=== PATIENT | male | born 1975 | race American Indian/Alaskan Native ===

== ENCOUNTER 2022-02-01 19:57 | Observation (INO) ==
[2022-02-01 20:45] LABS: Basophils # 0.1 K/mcL (0.0-0.2); Eosinophils # 0.8 K/mcL (0.0-0.6); Eosinophils % 5.6 %; Hematocrit 34.2 % (37.5-50.1); Hemoglobin 11.3 g/dL (12.9-16.9); Immature Granulocytes % 0.5 % (0-4); Lymphocytes # 2.1 K/mcL (0.6-4.6); Lymphocytes % 15.3 %; Mean Corpuscular Hemoglobin 31.8 pg (28.0-33.3); Mean Corpuscular Volume 96.3 fL (83.0-100.0); Mean Platelet Volume 8.8 fL (9.4-12.4); Monocytes # 1.1 K/mcL (0.0-1.3); Monocytes % 7.9 %; Neutrophils # 9.8 K/mcL (1.6-8.9); Platelet Count 288 K/mcL (140-400); Red Blood Count 3.55 M/mcL (4.19-5.50); Segmented Neutrophils % 69.7 %
[2022-02-01 21:01] LABS: INR 1.1; Prothrombin Time 11.9 Seconds (9.4-12.1)
[2022-02-01 21:03] LABS: Activated Partial Thrombo Time 29.1 Seconds (26.0-36.0)
[2022-02-01] MEDS ORDERED: Albuterol 2.5 MG/3 ML NEBULIZER IH ONE (22:18)
[2022-02-01] MEDS ORDERED: Insulin Human Regular 10 UNIT in 0.9 % Sodium Chloride 10 ML IV ONE (22:18)
[2022-02-01] MEDS ORDERED: Sodium Bicarbonate 50 MEQ/50 ML VIAL IVP ONE (22:18)
[2022-02-01] MEDS ORDERED: SODIUM ZIRCONIUM CYCLOSILICATE 5 GM POWD.PACK PO ONE (22:21)
[2022-02-01 22:28] LABS: Calcium 9.5 mg/dL (8.6-10.3)
[2022-02-01 22:30] LABS: Potassium 6.9 mEq/L (3.5-5.1)
[2022-02-01] MEDS ORDERED: *HR* Dextrose 50 % in Water (Syg) 50 ML SYRINGE ONE (23:15)
[2022-02-01] MEDS: Calcium Gluconate 1gm/50mL 1 GM/50 ML BAG IVPB SCH ×2 (23:17→23:54)
[2022-02-01] MEDS: *HR* Dextrose 50 % in Water (Vial) 50 ML VIAL IVP ONE (23:23)
[2022-02-01] MEDS ORDERED: Naloxone 0.4 MG/ML INJ IVP PRN (23:37)
[2022-02-01] MEDS ORDERED: Ondansetron ODT 4 MG TAB.RAPDIS SL PRN (23:37)
[2022-02-01] MEDS ORDERED: Melatonin 3 MG TABLET PO PRN (23:37)
[2022-02-02 05:45] LABS: Basophils # 0.1 K/mcL (0.0-0.2); Basophils % 0.9 %; Eosinophils # 0.7 K/mcL (0.0-0.6); Eosinophils % 5.3 %; Hematocrit 32.2 % (37.5-50.1); Hemoglobin 10.6 g/dL (12.9-16.9); Immature Granulocytes % 0.4 % (0-4); Lymphocytes # 2.4 K/mcL (0.6-4.6); Lymphocytes % 17.9 %; Mean Corpuscular HGB Conc 32.9 g/dL (31.6-35.5); Mean Corpuscular Hemoglobin 31.5 pg (28.0-33.3); Mean Corpuscular Volume 95.5 fL (83.0-100.0); Mean Platelet Volume 8.8 fL (9.4-12.4); Monocytes % 7.7 %; Neutrophils # 9.2 K/mcL (1.6-8.9); Platelet Count 280 K/mcL (140-400); Red Blood Count 3.37 M/mcL (4.19-5.50); Segmented Neutrophils % 67.8 %; White Blood Count 13.6 K/mcL (4.3-11.1)
[2022-02-02 06:04] LABS: Albumin 3.4 g/dL (3.5-5.7); Albumin/Globulin Ratio 1.4 (1.1-2.2); Bilirubin,Total 0.3 mg/dL (0.3-1.0); Calcium 9.7 mg/dL (8.6-10.3); Globulin 2.5 g/dL (2.4-3.5); Magnesium 1.7 mg/dL (1.6-2.6); Phosphorous 9.3 mg/dL (2.7-4.5); Potassium 6.6 mEq/L (3.5-5.1); Total Protein 5.9 g/dL (6.4-8.9)
[2022-02-02] MEDS ORDERED: *HR* Dextrose 50 % in Water (Vial) 50 ML VIAL IVP ONE (06:05)
[2022-02-02] MEDS ORDERED: Insulin Human Regular 10 UNIT in 0.9 % Sodium Chloride 10 ML IV ONE (06:05)
[2022-02-02] MEDS ORDERED: Albuterol 2.5 MG/3 ML NEBULIZER IH ONE (06:05)
[2022-02-02] MEDS ORDERED: SODIUM ZIRCONIUM CYCLOSILICATE 5 GM POWD.PACK PO ONE (06:07)
[2022-02-02] MEDS ORDERED: Calcium Gluconate 1gm/50mL 1 GM/50 ML BAG IVPB ONE (06:07)
[2022-02-02] MEDS ORDERED: *HR* Dextrose 50 % in Water (Syg) 50 ML SYRINGE IVP ONE (06:15)
[2022-02-02] MEDS: *HR* Heparin 5,000 UNIT/ML VIAL SQ SCH ×3 (06:45→20:05)
[2022-02-02] MEDS ORDERED: 0.9 % Sodium Chloride 250 ML IVC PRN (07:17)
[2022-02-02] MEDS ORDERED: 0.9 % Sodium Chloride 2,000 ML PRIME SCH (07:30)
[2022-02-02] MEDS: cloNIDine HCL 0.1 MG TABLET PO SCH ×2 (08:28→20:05)
[2022-02-02] MEDS: *HR* Dextrose 50 % in Water (Vial) 50 ML VIAL IVP ONE (08:28)
[2022-02-02] MEDS: NIFEdipine XL (24 HR) 30 MG TAB.ER.24 PO SCH (08:28)
[2022-02-02] MEDS: carvediloL 25 MG TABLET PO SCH ×2 (08:28→18:19)
[2022-02-02 09:15] LABS: Hepatitis B Surface Antigen Nonreactive (Nonreactive)
[2022-02-02 10:47] LABS: Hepatitis B Surface Antibody 11.86 mIU/mL
[2022-02-02] MEDS ORDERED: ceFAZolin 2,000 MG in 0.9 % Sodium Chloride 100 ML IVPB ONE (13:30)
[2022-02-02] MEDS ORDERED: *HR* FentaNYL (PF) 100 MCG/2 ML VIAL IVP ONE (13:30)
[2022-02-02] MEDS ORDERED: *HR* Midazolam HCl 2 MG/2 ML VIAL IVP ONE (13:30)
[2022-02-02] MEDS ORDERED: Heparin 1,000 UNITS/500 mL 500 ML ONE (14:09)
[2022-02-02] MEDS ORDERED: 0.9 % Sodium Chloride 500 ML ONE (14:13)
[2022-02-02] MEDS: ceFAZolin 1,000 MG in 0.9 % Sodium Chloride Mini Bag 100 ML IVPB SCH ×2 (14:26→14:30)
[2022-02-02] MEDS ORDERED: *HR* Heparin 5,000 UNIT/ML VIAL ONE ×3 (14:42→14:50)
[2022-02-02] MEDS ORDERED: Iopamidol - 300 50 ML VIAL IVP ONE (14:45)
[2022-02-02] MEDS ORDERED: *HR* HYDROcodone/Acet 10/325 mg TABLET PO ONE (19:50)
[2022-02-03] MEDS ORDERED: *HR* HYDROmorphone (PF) 1 MG/ML SYRINGE IVP ONE (01:28)
[2022-02-03 04:11] LABS: Calcium 8.5 mg/dL (8.6-10.3); Potassium 5.6 mEq/L (3.5-5.1)
[2022-02-03 05:44] LABS: Basophils # 0.1 K/mcL (0.0-0.2); Basophils % 0.8 %; Eosinophils # 0.6 K/mcL (0.0-0.6); Hematocrit 34.2 % (37.5-50.1); Hemoglobin 10.9 g/dL (12.9-16.9); Immature Granulocytes % 0.6 % (0-4); Lymphocytes # 1.9 K/mcL (0.6-4.6); Lymphocytes % 16.5 %; Mean Corpuscular HGB Conc 31.9 g/dL (31.6-35.5); Mean Corpuscular Volume 97.2 fL (83.0-100.0); Mean Platelet Volume 8.9 fL (9.4-12.4); Monocytes # 0.9 K/mcL (0.0-1.3); Monocytes % 8.1 %; Neutrophils # 7.9 K/mcL (1.6-8.9); Platelet Count 281 K/mcL (140-400); Red Blood Count 3.52 M/mcL (4.19-5.50); Red Cell Distribution Width 16.4 % (11.5-14.5); White Blood Count 11.5 K/mcL (4.3-11.1)
[2022-02-03] MEDS: *HR* Heparin 5,000 UNIT/ML VIAL SQ SCH ×2 (06:02→12:52)
[2022-02-03] MEDS ORDERED: 0.9 % Sodium Chloride 250 ML IVC PRN (07:41)
[2022-02-03] MEDS: NIFEdipine XL (24 HR) 30 MG TAB.ER.24 PO SCH (08:10)
[2022-02-03] MEDS: carvediloL 25 MG TABLET PO SCH ×2 (08:10→17:19)
[2022-02-03] MEDS: cloNIDine HCL 0.1 MG TABLET PO SCH (08:10)
[2022-02-03 14:51] LABS: Calcium 8.4 mg/dL (8.6-10.3); Potassium 5.2 mEq/L (3.5-5.1)
[2022-02-03 16:33] VITALS: PULSE 77; O2SAT 96
[2022-02-03 22:23] VITALS: BP 168/79; TEMP 98
== END 2022-02-03 20:55 | disposition home or self-care (01) ==
LOC: EMEROOARM 19:57 → 2ANU 19:57 → SUATTDRO 23:45 → 2ANU 02-02 00:44 → 2NENU 02-03 17:36
PROVIDERS: ADMIT Internal Medicine; ATTEND Internal Medicine
PROC: IRPERMA (2022-02-02 12:00)